=== PATIENT | female | born 1965 | race African-American/Black ===

== ENCOUNTER 2021-07-12 22:26 | Inpatient (IN) | payer OTHER ==
[~2021-07-12] VITALS: Ht 152.4 cm; Wt 77.1 kg
[~2021-07-12 22:26] MED LIST: ADVAIR 250-501 EACH IH; ALBUTEROL INH; AMBEREN; BLACK COHOSH200 MG PO; CALCIUM 500 +1 EAC4 PO; FLEXERIL PO; IBUPROFEN 600600 M1 PO; IRON; LIPITOR10 MG PO; LOW DOSE ASPIRI81 M1 PO; MAGNESIUM GLUC500 M1 PO; NORCO 5-325 TA1 EACH PO; OMEGA 3-6-9 CO1 EACH PO; PROTONIX 20 MG20 M1 PO; VITAMIN E400 UNIT PO
[2021-07-12 22:35] VITALS: BP 117/67
[2021-07-12 23:51] LABS: ABSOLUTE NEUTROPHILS 2.6 thou/uL (1.4-8.2); BASOPHILS 0.3 % (0.0-2.0); HEMATOCRIT 36.2 % (37.0-47.0); HEMOGLOBIN 11.8 gm/dL (12.0-15.0); MCH 27.5 pg (26.0-34.0); MCHC 32.5 g/dL (28.0-37.0); MCV 84.7 fL (80.0-100.0); MONOCYTES 9.1 % (1.0-8.0); PLATELET COUNT 190 thou/uL (150-400); POLYS 78.6 % (36.0-66.0); RBC 4.28 mil/uL (4.20-5.00); RDW 12.8 % (10.5-14.5); WBC 3.3 thou/uL (4.0-11.0)
[2021-07-13 00:29] LABS: CALCIUM 8.1 mg/dL (8.5-10.1); CREATININE 0.9 mg/dL (0.6-1.0); POTASSIUM 3.2 mmol/L (3.5-5.1)
[2021-07-13 09:05] VITALS: BP 107/64
--- NOTE | 2021-07-13 10:12 | NUR ---
PT REQUESTS BTX. DR NESBITT PAGED AND GIVES T/O FOR ALBUTEROL 1.25 Q4 PRN
[2021-07-13 11:14] VITALS: BP 96/62
[2021-07-13 11:59] VITALS: BP 96/62
[2021-07-13 13:04] LABS: ALBUMIN 3.2 g/dL (3.4-5.0); DIRECT BILIRUBIN 0.1 mg/dL (<0.1-0.2); TOTAL BILIRUBIN 0.3 mg/dL (0.2-1.0); TOTAL PROTEIN 5.9 g/dL (6.4-8.2)
[2021-07-13 15:26] VITALS: BP 93/60
[2021-07-13 19:34] VITALS: BP 108/68
[2021-07-14] VITALS (7 sets, daily range): BP systolic 82–108; BP diastolic 58–67
--- NOTE | 2021-07-14 06:30 | NUR ---
C/O headache at beginning of shift. Tylenol given with some relief. She requested that tylenol be changed to liquid because it upsets her stomach. INTERIOR DESIGN INSTRUCTOR notified and order obtained. O2 at 1L/NC with O2 sat in the mid to upper 90's. She slept some then when she woke up this am she took off oxygen and got up to commoode. Desat to 88% in RA. O2 at 2L applied to keep o2 sat up > 90%. Sputum and urine sample sent to lab. Max temp of 100.8 ,tylenol given with good results.
[2021-07-14 07:57] LABS: ABSOLUTE NEUTROPHILS 1.9 thou/uL (1.4-8.2); BASOPHILS 0.2 % (0.0-2.0); EOSINOPHILS 0.1 % (0.0-3.0); HEMATOCRIT 32.4 % (37.0-47.0); HEMOGLOBIN 10.7 gm/dL (12.0-15.0); LYMPHOCYTES 23.5 % (24.0-44.0); MCV 84.8 fL (80.0-100.0); MONOCYTES 14.7 % (1.0-8.0); PLATELET COUNT 200 thou/uL (150-400); POLYS 61.5 % (36.0-66.0); RBC 3.82 mil/uL (4.20-5.00); RDW 13.1 % (10.5-14.5); WBC 3.1 thou/uL (4.0-11.0)
[2021-07-14 08:14] LABS: ALBUMIN 2.6 g/dL (3.4-5.0); CALCIUM 7.7 mg/dL (8.5-10.1); CREATININE 0.7 mg/dL (0.6-1.0); DIRECT BILIRUBIN 0.1 mg/dL (<0.1-0.2); PHOSPHORUS 3.2 mg/dL (2.5-4.9); POTASSIUM 3.4 mmol/L (3.5-5.1); TOTAL BILIRUBIN 0.3 mg/dL (0.2-1.0); TOTAL PROTEIN 5.7 g/dL (6.4-8.2)
[2021-07-14 08:28] LABS: INR 0.94; PROTIME 10.3 Seconds (10.5-12.1)
--- NOTE | 2021-07-14 13:53 | NUR ---
DISCHARGE ORDERS DISCUSSED WITH DR. HULL. I CALLED DR. PRO TO CONFIRM THAT PATIENT IS OKAY TO DISCHARGE ON CEFDINIR AND PREDNISONE (SEE ORDERS) PER DR. HULL'S REQUEST. DR. PRO CONFIRMED MEDICATIONS WILL BE SUITABLE AT DISCHARGE. MEDICATIONS CALLED IN TO [facility] OFF [address] DUE TO LIMITED STORE HOLDAY HOURS. PATIENT'S TO CRISIS THERAPIST PRESCRIPTIONS BEFORE 1400, SO THAT THEY WILL BE AVAILABLE AT DISCHARGE. DISCHARGE PAPERWORK REVIEWED WITH PATIENT. QUESTIONS AND CONCERNS WERE ADDRESSED. IV ACCESS DISCONINTUED. WILL TRANSPORT PATIENT OUT OF HOSPITAL VIA WHEELCHAIR ON ROOM AIR ONCE ARRIVES AT HOSPITAL ENTRANCE.
[2021-07-14] MEDS ORDERED: XANAX 0.25 MG0.25 MG PO (14:25)
--- NOTE | 2021-07-14 17:42 | NUR ---
PATIENT C/O NAUSEA, 3 SMALL OCCURANCES OF LIQ STOOL (PER RIM BUSTER REPORT) AND SLIGHT DIZZINESS. BP LOW, BUT STABLE AND CONSISTENT WITH TREND THIS HOSPITALIZATION. ZOFRAN GIVEN TWICE FOR NAUSEA. ENCOURAGED PO INTAKE OF FLUIDS. JORDON REPORTED AT 1700 THAT THE NAUSEA HAD NOT RESOLVED AND THAT SHE HAS NOT BEEN ABLE TO TAKE PO FLUIDS. DR. NESBITT PAGED AT 1653, NO RESPONSE. DR. NESBITT PAGED AT 1724, WAITING FOR RESPONSE.
--- NOTE | 2021-07-14 21:41 | NUR ---
Pt requested nursing to stop the IVF because she didnt think she was that dehydrated and that she feels "funny" and "lightheaded". Pt voiced that she's been light headed off and on, even prior to admission. Pt voiced she didnt want any immodium for diarrhea.
[2021-07-15 03:10] LABS: HEMATOCRIT 31.6 % (37.0-47.0); HEMOGLOBIN 10.7 gm/dL (12.0-15.0); MCH 28.9 pg (26.0-34.0); MCV 85.1 fL (80.0-100.0); RBC 3.71 mil/uL (4.20-5.00); RDW 12.9 % (10.5-14.5)
[2021-07-15 03:46] LABS: ALBUMIN 2.5 g/dL (3.4-5.0); CALCIUM 7.8 mg/dL (8.5-10.1); CREATININE 0.7 mg/dL (0.6-1.0); DIRECT BILIRUBIN 0.1 mg/dL (<0.1-0.2); PHOSPHORUS 3.4 mg/dL (2.5-4.9); POTASSIUM 3.7 mmol/L (3.5-5.1); TOTAL BILIRUBIN 0.3 mg/dL (0.2-1.0); TOTAL PROTEIN 5.6 g/dL (6.4-8.2)
--- NOTE | 2021-07-15 04:32 | NUR ---
Pt's sister Cecelia called for update at about half of shift. Update given. Pt called out 5 mins later, voicing that she feels light headed and confused. Nursing went in to check on pt. VSS was stable at that time. Pt voiced that she woke up from sleep and thought she was suppposed to do something with the call light but can't remember what. Pt voiced that she would not want to take the promethazine anymore, and also requested her fluid to be hooked back up. Pt seemed anxious and voiced that she takes xanax for anxiety. Nursing offered to stay with pt for some minutes to help pt relax. Pt voiced she would want to take xanax but fell asleep. Nursing called tim [facility] for xanax, Kimberly asked that nursing verifies dosage when pt wakes up. Pt voiced she does not want to take the xanax anymore. Pt continued to sleep afterwards. Nursing to continue to monitor.
[2021-07-15 05:00] VITALS: BP 98/60
[2021-07-15 05:06] LABS: HIV ANTIBODY Non Reactive (Non Reactive)
[2021-07-15 08:06] VITALS: BP 93/60
[2021-07-15 11:17] VITALS: BP 93/59
[2021-07-15 13:07] LABS: ANTI-VCA/IgG >600.0 U/mL (0.0-17.9); ANTI-VCA/IgM <36.0 U/mL (0.0-35.9)
--- NOTE | 2021-07-15 16:19 | NUR ---
PT DENIES ANY NAUSEA TODAY, HAD 1 LOOSE BM FOR MY SHIFT. SATED NAUSE AND DIARRHEA AND BETTER. REFUSED REMDESVIR TODAY, SATED THE DOCCTOR WAS GOING TO PUT IT ON HOLD BECAUSE OF HER LIGHTHEADNESS. UP TO BSC INDEPENDENTLY. TABLE AND SUPLLE WITHIN REACH. DENIES ANY NEEDS HALLIE
[2021-07-15 17:06] VITALS: BP 99/63
[2021-07-15 19:55] VITALS: BP 98/59
--- NOTE | 2021-07-15 23:18 | NUR ---
PROGRESS PT A/O X4, UP AD SATHISH ON 3 LITERS O2 VIA NC. LUNG SOUNDS CLEAR TO DIMINISHED, HAS A GOOD PRODUCTIVE COUGH. TOOK A SHOWER USED PERTABLE O2 SET AT 5 LITERS NO SOB NOTED UNTIL THE LAST FEW MINUTES OF DRYING AND DRESSING. TEMP 99.2 ALL OTHER VSS. DRINKING ADEQUATE PO FLUIDS AND HAD A BEDTIME SNACK OF JELLO AND CRACKERS. VOIDING QS, REFUSING SCD'S USING ISP INDEPENDENTLY ENCOURAGED TO INCREASE USE. CONTINUE POC.
[2021-07-16 03:25] LABS: HEMOGLOBIN 10.6 gm/dL (12.0-15.0); MCH 28.8 pg (26.0-34.0); MCHC 34.2 g/dL (28.0-37.0); MCV 84.1 fL (80.0-100.0); PLATELET COUNT 310 thou/uL (150-400); RBC 3.68 mil/uL (4.20-5.00); RDW 12.9 % (10.5-14.5); WBC 3.7 thou/uL (4.0-11.0)
[2021-07-16 03:48] LABS: ALBUMIN 2.6 g/dL (3.4-5.0); CALCIUM 7.7 mg/dL (8.5-10.1); CREATININE 0.6 mg/dL (0.6-1.0); DIRECT BILIRUBIN 0.1 mg/dL (<0.1-0.2); PHOSPHORUS 3.4 mg/dL (2.5-4.9); POTASSIUM 3.8 mmol/L (3.5-5.1); TOTAL BILIRUBIN 0.3 mg/dL (0.2-1.0); TOTAL PROTEIN 5.7 g/dL (6.4-8.2)
[2021-07-16 03:59] VITALS: BP 102/67
[2021-07-16 07:13] LABS: ABSOLUTE NEUTROPHILS 1.5 thou/uL (1.4-8.2); METAMYELOCYTES 1 %; MYELOCYTES 2 %
[2021-07-16 07:14] LABS: ANISOCYTOSIS 1+
[2021-07-16 07:53] VITALS: BP 102/68
[2021-07-16 09:08] LABS: HAV IgM AB (ANTI-HAV IgM) Negative (Negative); HEP B SURFACE Ab(ANTI-HBS Non Reactive (()); HEPATITIS B SURFACE AG Negative (Negative); HEPATITIS C VIRUS AB <0.1 (0.0-0.9)
[2021-07-16 11:27] VITALS: BP 103/67
--- NOTE | 2021-07-16 14:17 | NUR ---
PT IS PROGRESSING TOWARDS POC. ON 2L OF OXYGEN, SOME SOB WITH EXERTION. O2 TUBING EXTENDED FPOR PT TO GO THE BATHRROM. DENIES ANY PAIN AND NAUSEA. DENIES ANY OTHER NEEDS HALLIE. WILL CONTINUE TO MONITOR
--- NOTE | 2021-07-16 14:24 | NUR ---
INITIAL ASSESSMENT: SW reviewed chart and spoke with nursing and attending physician. Pt was admitted from home due to COVID pneumonia. Pt placed in Enhanced Isolation. Pt has not received a COVID vaccination. Pt is afebrile and on 2L of O2. Pt is on IV steroids and Remdesivir. SW spoke with pt via phone. Introduced role of SW. Pt is alert/orientated x 4. Pt reports she lives at home with family. Prior to admission, pt was independent with ADLs. Pt has hx of asthma and has an inhaler and nebulizer for breathing treatments. Pt's PCP is Dr. Judd Herrera. No hx of HH or post-acute placement. Pt confirms that she does not have health insurance. [employer] has reached out to pt regarding Medicaid application. [facility] business office to contact pt to assist with financial assistance if needed. Pt recently started a new job and is not eligible for insurance yet. Plan is for pt to discharge home when medically stable. SW is following to assist as needed with discharge planning.
--- NOTE | 2021-07-16 14:32 | NUR ---
ISA reviewed chart and spoke with nursing and attending physician. Pt remains in Enhanced Isolation due to COVID. Pt is afebrile and on 2L of O2. Pt is on IV steroids and IV lasix. ISA spoke with pt via phone to provide update. Pt states that she was told by attending physician that discharge home is anticipated for Wednesday. Pt reports that she will need transportation home when discharged. Her two sons are at home with COVID and in isolation. Pt is aware that she will most likely need home O2 when discharged. Will need a rest/exercise oximetry completed to determine home O2 needs. ISA updated [facility] liaison. Portable O2 tank has been delivered to the hospital. SW is following to assist as needed with discharge planning.
[2021-07-16 15:28] VITALS: BP 104/59
[2021-07-16 19:42] VITALS: BP 111/65
--- NOTE | 2021-07-16 22:24 | NUR ---
PT SLEEPING IN BED IN FOWLERS POSITION. PT HAS LIGHTS OFF. PT CHEERFUL AND PLEASANT WITH CONVERSATION. O2 NC. LUNGS MUSICAL WHEEZES. RT CALLED FOR TREATMENT. BLE EDEMA. PT DECLINED HS SNACK.
[2021-07-17] VITALS (7 sets, daily range): BP systolic 96–106; BP diastolic 55–68
[2021-07-17 05:39] LABS: ALBUMIN 2.7 g/dL (3.4-5.0); CALCIUM 8.1 mg/dL (8.5-10.1); CREATININE 0.7 mg/dL (0.6-1.0); DIRECT BILIRUBIN 0.2 mg/dL (<0.1-0.2); PHOSPHORUS 3.6 mg/dL (2.5-4.9); TOTAL BILIRUBIN 0.4 mg/dL (0.2-1.0); TOTAL PROTEIN 5.4 g/dL (6.4-8.2)
--- NOTE | 2021-07-17 13:25 | NUR ---
ISA notified by nursing that pt may be discharged home later today. Pt remains in Enhanced Isolation due to COVID. Pt is afebrile and on 2L of O2. Pt to complete course of Remdesivir today. Rest/exercise oximetry completed earlier today. Pt does require 2L of O2. ISA spoke with pt via phone to discuss discharge plan. Pt is aware and agreeable with discharge. ISA confirmed pt's home address and phone number. Pt is aware that she will need home oxygen. Options for DME companies provided. No preference voiced. ISA faxed home oxygen referral to [facility]. Notified [facility] liaison. Portable tank delivered to [facility]. ISA faxed face sheet to outpatient pharmacy and spoke with Cyndie. Case Mgmt to vouch for meds, as pt does not have health insurance. Pt's family is able to provide transportation home. ISA faxed [facility] and [facility] to [facility] to provide to pt for follow up care. ISA is following to assist as needed with discharge planning.
--- NOTE | 2021-07-17 23:22 | NUR ---
PT WATCHING TV IN BED IN THE DARK. O2 PER NC. PT INDEP WITH AMBULATION, STEADY GAIT. LUNGS CLEAR AND DIMINISHED IN BASES. HS SNACK PROVIDED. PT VERBALIZED PLAN FOR DC IN AM.
[2021-07-18 04:37] VITALS: BP 91/58
[2021-07-18 05:29] LABS: HEMATOCRIT 31.4 % (37.0-47.0); HEMOGLOBIN 10.5 gm/dL (12.0-15.0); MCH 28.3 pg (26.0-34.0); MCHC 33.5 g/dL (28.0-37.0); MCV 84.5 fL (80.0-100.0); RBC 3.71 mil/uL (4.20-5.00); WBC 5.2 thou/uL (4.0-11.0)
[2021-07-18 05:32] LABS: PLATELET COUNT 465 thou/uL (150-400)
[2021-07-18 05:54] LABS: D-DIMER 0.2 ug/mLFEU (0.19-0.50)
[2021-07-18 06:11] LABS: ALBUMIN 2.6 g/dL (3.4-5.0); CALCIUM 8.1 mg/dL (8.5-10.1); CREATININE 0.6 mg/dL (0.6-1.0); POTASSIUM 3.5 mmol/L (3.5-5.1); TOTAL BILIRUBIN 0.4 mg/dL (0.2-1.0); TOTAL PROTEIN 5.3 g/dL (6.4-8.2)
[2021-07-18 06:53] LABS: ABSOLUTE NEUTROPHILS 2.3 thou/uL (1.4-8.2)
[2021-07-18 06:54] LABS: ANISOCYTOSIS 1+; LARGE PLATELETS FEW; PLATELET ESTIMATE INCREASED; POIKILOCYTOSIS 1+
[2021-07-18 07:33] VITALS: BP 95/60
[2021-07-18 09:00] LABS: T-SPOT.TB Negative
[2021-07-18 11:29] VITALS: BP 97/56
[2021-07-18] MEDS ORDERED: VITAMIN D325 MC2 PO (13:40)
[2021-07-18] MEDS ORDERED: GUAIFENESIN DM S5 ML PO (13:40)
[2021-07-18] MEDS ORDERED: PEPCID20 MG PO (13:40)
[2021-07-18] MEDS ORDERED: PREDNISONE 20 M20 M1 PO (13:40)
--- NOTE | 2021-07-18 15:01 | NUR ---
DISCHARGE NOTE: ISA reviewed chart and spoke with nursing and attending physician. Pt remains in Enhanced Isolation due to COVID. Pt is medically stable for discharge home today. Portable O2 tank at the nurses station for pt to take home. Scripts sent to [facility]. ISA spoke with Mirella. Case Mgmt to vouch for new meds. Mirella to call ISA with total. ISA spoke with pt via phone to discuss discharge plan. Pt is aware and in agreement with plan. Pt's sister will provide transportation home. Contact info for [facility] placed in pt's discharge summary. No additional SW needs identified at this time, but is available to assist should needs arise.
--- NOTE | 2021-07-18 15:58 | NUR ---
Patient AAOx4, most recent VSS, pt in NAD, POX >93% on 2L NC, indepent, gait steady. Patient denies pain on assessment x3 today. Discharge education and instructions discussed with patient, printed materials provided. All medications discussed, Importance of 1 week follow-up visit discussed - patient verbalized understanding. Patient denies having a PCP - RN encouraged her to find a clinic where she can see a provider for primary/preventive care - pt verbalized understanding. Home O2 education provided with discussion and demonstration to pt and sister - understanding verbalized by both. IV and tele box removed by JUANA Soria. Patient taken by wheelchair to main entrance where sister Cecelia picked her up - transported via private vehicle to home with HH on 2L NC 02.
== END 2021-07-18 16:09 | disposition home or self-care (01) | DRG 871 ==
LOC: ER 22:26 → EROBS 07-13 01:28 → 3W 07-13 12:05
PROVIDERS: Hospitalist; Internal Medicine; Specialist; Student in an Organized Health Care Education/Training Program; ADMIT Internal Medicine; ATTEND Internal Medicine
PROC: XW033E5 Introduction of Remdesivir Anti-infective into Peripheral Vein, Percutaneous Approach, New Technology Group 5 (ICD-10-PCS; principal; 2021-07-13)
DX: A41.89 Other specified sepsis (principal); U07.1 COVID-19; J96.01 Acute respiratory failure with hypoxia; J12.82 Pneumonia due to coronavirus disease 2019; J45.909 Unspecified asthma, uncomplicated; E78.5 Hyperlipidemia, unspecified; I10 Essential (primary) hypertension; K75.9 Inflammatory liver disease, unspecified; R74.01 Elevation of levels of liver transaminase levels; D64.9 Anemia, unspecified; R79.89 Other specified abnormal findings of blood chemistry; E87.6 Hypokalemia; G43.909 Migraine, unspecified, not intractable, without status migrainosus; Z90.710 Acquired absence of both cervix and uterus; Z83.3 Family history of diabetes mellitus; Z87.891 Personal history of nicotine dependence; Z88.8 Allergy status to other drugs, medicaments and biological substances; Z91.040 Latex allergy status; Z79.899 Other long term (current) drug therapy
CPT/HCPCS: 10879